=== PATIENT | female | born 1965 | race Caucasian/White ===

== ENCOUNTER 2022-02-23 09:26 | Outpatient (CLI) | payer BC, SELFPAY ==
[2022-02-23 12:42] LABS: Chloride* 99 mmol/L (96-114); Potassium* 5.3 mmol/L (3.6-5.1); Sodium* 135 mmol/L (135-149)
[2022-02-23 12:45] LABS: Blood Urea Nitrogen* 14 mg/dL (7-30); Calcium* 9.7 mg/dL (8.4-10.6); Carbon Dioxide* 28 mmol/L (20-32); Creatinine* 0.7 mg/dL (0.5-1.5); Estimated Glomerular Filt Rate 100 ml/min; Glucose* 100 mg/dL (60-115)
== END 2022-02-23 09:27 | disposition home or self-care (01) ==
PROVIDERS: PCP Physician Assistant Medical; Visit Provider Physician Assistant Medical
DX: R07.9 Chest pain, unspecified (principal)
CPT/HCPCS: 80048; 82553

== ENCOUNTER 2022-02-23 12:24 | Emergency (ER) | payer BC, OTHER, SELFPAY ==
[2022-02-23 12:49] VITALS: BP 143/78; PULSE 118; RESP 18; TEMP 37.1; O2SAT 100; BMI 22.8
--- NOTE | 2022-02-23 13:41 | ED_ITS ---
HPI - General Adult General Chief complaint: Chest Pain Stated complaint: Chest pain,shortness of breath Time Seen by Provider: 02/23/22 12:39 Source: patient Mode of arrival: ambulatory Limitations: no limitations History of Present Illness HPI narrative: 56-year-old female coming in today complaining of chest pressure that started earlier this morning. Nothing seems to make it better. Taking deep breaths makes it worse. She states that she is not short of breath but sometimes she feels like she can not take a deep enough breath. She states that she had an episode that lasted about 10 minutes were her right arm felt tingly as well but this has resolved. She denies headache, changes in her vision or hearing. No nausea or vomiting. She denies any dizziness or vertiginous symptoms. She does state that she recently drove from [employer], about a week ago. She has no history of blood clots. She denies fevers or chills. She denies any trauma to the chest wall. She was seen in the clinic earlier today where an EKG was done which was unremarkable, normal troponin and D-dimer was also normal. However she states that when she ambulated in the clinic her oxygen saturation dropped into the upper 80s. Patient denies any past medical history consistent with tachycardia. Patient does have a history of hypertension. Denies personal or family history of blood clots. States that she does have a brain aneurysm that is followed closely. 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 Related Data Home Medications Medication Instructions Recorded Confirmed estradiol 0.01% (0.1 mg/gram) 1 appful vaginal QDAY 02/23/22 02/23/22 vaginal cream (Estrace) fluorouracil 0.5 % topical cream 1 applic topical QWEEK 02/23/22 02/23/22 fluorouracil 4 % topical cream 1 applic topical QDAY 02/23/22 02/23/22 lisinopril 10 mg tablet 10 mg PO QDAY 02/23/22 02/23/22 mupirocin 2 % topical ointment 1 applic topical TID 02/23/22 02/23/22 niacinamide 500 mg tablet 500 mg PO BID 02/23/22 02/23/22 nortriptyline 25 mg capsule 25 mg PO .HS 02/23/22 02/23/22 tacrolimus 0.1 % topical ointment 1 applic topical BID 02/23/22 02/23/22 triamcinolone acetonide 0.1 % 1 applic topical BID 02/23/22 02/23/22 topical cream Allergies Allergy/AdvReac Type Severity Reaction Status Date / Time No Known Drug Allergies Allergy Verified 02/23/22 08:50 Review of Systems Status of ROS: Reports: 10 or more systems reviewed and unremarkable except as noted in History and below [facility] Medical History Chest pain Social History Smoking Status: Former smoker Do you use any of these nicotine containing products: None Second hand tobacco smoke exposure: Yes How often do you have a drink containing alcohol: monthly or less How many standard drinks containing alcohol do you have on a typical day: 1 or 2 How often do you have six or more drinks on one occasion: Never AUDIT-C Alcohol total score: 1 Non-prescribed substance use: denies use Exam Narrative: Exam Narrative: Well-nourished well-developed patient in no acute distress. Alert and oriented. Answers questions appropriately. Mood and affect are appropriate. Thoughts are goal oriented and rational. No tangential or magical thinking noted. Patient speaks in full sentences without needing to catch their breath. HEENT: Normocephalic atraumatic. Right pupil is quite a bit larger than the left, patient is blind in the right eye.. Extraocular muscles are intact. Conjunctivae are moist without any icterus noted. Moist mucous membranes. Posterior pharynx is normal. Neck is soft without any lymphadenopathy or thyromegaly. No masses are appreciated. Cardiovascular: Heart is regular rate and rhythm S1 and S2 are present without any murmurs. I cannot reproduce her chest pain on palpation of the chest wall. Lungs: Clear to auscultation bilaterally no wheezes rhonchi or rales are appreciated. Patient takes deep breaths without any discomfort. Abdomen: Soft and nontender nondistended with normal bowel sounds. No guarding or rebound. No masses or organomegaly appreciated. Extremities: Bilateral lower extremities are without edema. Normal DP and PT pulses. Skin: Well perfused without any obvious rashes. Strength is 5/5 of the upper and lower extremities. Reflexes are 2+ and symmetric at the knees. Cranial nerves 3-12 are normal. There is no nystagmus either horizontally or vertically. Gait is normal. Const: Vital Signs, click to edit/add: Vital Signs - 24 hr 02/23/22 12:49 02/23/22 14:38 Temperature 98.7 F Pulse Rate [Right Pulse Oximeter] 118 H 84 Respiratory Rate 18 10 L Blood Pressure [Le ft Upper Arm] 143/78 H 152/85 H Pulse Oximetry 100 99 Oxygen Delivery Me thod Room Air Room Air Course Course Hospital Course: IV was started and labs were redrawn. D-dimer was slightly elevated. EKG shows sinus tachycardia with a pulse of 110. Troponin x2 were negative. Chest x-ray was done in the clinic earlier and was reviewed was normal. Because of the elevated D-dimer we did go ahead and proceed with a chest CT, PE protocol, which was entirely normal. We did ambulate her while she was here and her oxygen saturation did drop to about 89 with ambulation but quickly came back up to 99 with rest. During that time patient does not become short of breath. Her chest discomfort remained substernal and unchanged. COVID testing was negative. Vital Signs Vital signs: Initial Vital Signs Temperature 98.7 F 02/23/22 12:49 Temperature Source Temporal Artery Scan 02/23/22 12:49 Pulse Rate 118 H 02/23/22 12:49 Respiratory Rate 18 02/23/22 12:49 Blood Pressure 143/78 H 02/23/22 12:49 Blood Pressure Mean 99 02/23/22 12:49 Blood Pressure Position Sitting 02/23/22 12:49 Pulse Oximetry 100 02/23/22 12:49 Oxygen Delivery Method 02/23/22 12:49 Vital Signs Temperature 98.7 F 02/23/22 12:49 Pulse Rate 118 H 02/23/22 12:49 Respiratory Rate 18 02/23/22 12:49 Blood Pressure 143/78 H 02/23/22 12:49 Pulse Oximetry 100 02/23/22 12:49 Oxygen Delivery Method 02/23/22 12:49 Temperature 98.7 F 02/23/22 12:49 Pulse Rate 84 02/23/22 14:38 Respiratory Rate 10 L 02/23/22 14:38 Blood Pressure 152/85 H 02/23/22 14:38 Pulse Oximetry 99 02/23/22 14:38 Oxygen Delivery Method 02/23/22 14:38 Medical Decision Making MDM Narrative Medical decision making narrative: 56-year-old female with chest pain and hypoxia with exertion, etiology unclear at this time. We discussed further testing at this time and even admission however the patient states that she really needs to go home and she stated that she felt safe doing so. We did discuss doing an outpatient echocardiogram which she is agreeable to. We discussed returning to the ER if her symptoms worsen. She is currently describing her chest pain as a discomfort that does not stop her from doing her daily activities. Given her serial negative troponins, including the 1st troponin done this morning at the clinic, no EKG changes, and normal CT scan, I do feel that she is safe to go home at this time. Differential Diagnosis Differential Diagnosis: Acute coronary syndrome, pericardial effusion, pericarditis, pleurisy Medical Records Medical records reviewed: Yes I reviewed the patient's medical records Lab Data Lab results reviewed: Yes I reviewed the patient's lab results Labs: Lab Results 02/23/22 02/23/22 02/23/22 Range/Units 13:15 13:15 13:15 ESR 11 (2-20) mm/hr D-Dimer Quant (PE/DVT) 0.62 H (0.00-0.50) ug/ml Sodium 135 (135-149) mmol/L Potassium 4.2 (3.6-5.1) mmol/L Chloride 100 (96-114) mmol/L Carbon Dioxide 28 (20-32) mmol/L BUN 13 (7-30) mg/dL Creatinine 0.6 (0.5-1.5) mg/dL Estimated Creat Clear 110.52 Estimated GFR 104 ml/min Glucose 169 H (60-115) mg/dL Calcium 9.4 (8.4-10.6) mg/dL Total Bilirubin 0.2 (0.1-1.5) mg/dL Direct Bilirubin 0.1 (0.0-0.5) mg/dL AST 42 H (12-35) U/L ALT 28 (4-35) U/L Alkaline Phosphatase 59 (40-150) U/L Troponin I < 0.01 L (0.01-0.04) ng/mL C-Reactive Protein < 0.5 L (0.5-1.0) mg/dL Total Protein 7.8 (6.0-8.3) g/dL Albumin 4.6 (3.3-5.0) g/dL Lipase 64 (23-300) U/L SARS-CoV-2 (PCR) (Negative) Influenza Type A (PCR) (Negative) Influenza Type B (PCR) (Negative) 02/23/22 02/23/22 Range/Units 15:12 16:31 ESR (2-20) mm/hr D-Dimer Quant (PE/DVT) (0.00-0.50) ug/ml Sodium (135-149) mmol/L Potassium (3.6-5.1) mmol/L Chloride (96-114) mmol/L Carbon Dioxide (20-32) mmol/L BUN (7-30) mg/dL Creatinine (0.5-1.5) mg/dL Estimated Creat Clear Estimated GFR ml/min Glucose (60-115) mg/dL Calcium (8.4-10.6) mg/dL Total Bilirubin (0.1-1.5) mg/dL Direct Bilirubin (0.0-0.5) mg/dL AST (12-35) U/L ALT (4-35) U/L Alkaline Phosphatase (40-150) U/L Troponin I < 0.01 L (0.01-0.04) ng/mL C-Reactive Protein (0.5-1.0) mg/dL Total Protein (6.0-8.3) g/dL Albumin (3.3-5.0) g/dL Lipase (23-300) U/L SARS-CoV-2 (PCR) Negative SARS-CoV-2 (Negative) Influenza Type A (PCR) Negative PCR FLU A (Negative) Influenza Type B (PCR) Negative PCR FLU B (Negative) Imaging Data CT scan - chest: Attestation: I have reviewed the pertinent imaging results. Radiologist's impression: FINDINGS: Pulmonary arteries: The quality of enhancement of the pulmonary arteries is adequate. No filling defects to suggest pulmonary emboli. No findings of pulmonary artery hypertension. Thyroid: Unremarkable. Thoracic lymph nodes: No enlarged supraclavicular, mediastinal, hilar, or axillary lymph nodes. Mediastinum and esophagus: Unremarkable. Heart and vasculature: Unremarkable. Lungs: Unremarkable. Pleura: Unremarkable. Chest wall: Unremarkable. Upper abdomen: No acute or significant findings. Bones: Unremarkable for age. IMPRESSION: 1. No pulmonary embolism. 2. Clear lungs. Discharge Plan Discharge Clinical Impression: Chest pain Patient Disposition: Home, Self-Care Condition: Stable Additional Instructions: Recommend you follow-up with an echocardiogram early next week. Return to the ER if you are experiencing shortness of breath or worsening chest pain. We will call you with your COVID results today. Prescriptions: No Action nortriptyline 25 mg capsule 25 mg PO .HS lisinopril 10 mg tablet 10 mg PO QDAY estradiol [Estrace] 0.01 % (0.1 mg/gram) cream 1 appful vaginal QDAY Rx Instructions: for 14 days fluorouracil 0.5 % cream 1 applic topical QWEEK tacrolimus 0.1 % ointment 1 applic topical BID triamcinolone acetonide 0.1 % cream 1 applic topical BID fluorouracil 4 % cream 1 applic topical QDAY mupirocin 2 % ointment 1 applic topical TID niacinamide 500 mg tablet 500 mg PO BID Follow Up/Referrals: Olivia Matt PA-C [Primary Care Provider] - Stand Alone Forms: [employer] Info Instructions
[2022-02-23 13:47] LABS: Chloride* 100 mmol/L (96-114)
[2022-02-23 13:48] LABS: Albumin* 4.6 g/dL (3.3-5.0); Potassium* 4.2 mmol/L (3.6-5.1); Sodium* 135 mmol/L (135-149)
[2022-02-23 13:50] LABS: Creatinine* 0.6 mg/dL (0.5-1.5); Est. Creatinine Clearance* 110.52; Estimated Glomerular Filt Rate 104 ml/min
[2022-02-23 13:51] LABS: Alanine Aminotransferase* 28 U/L (4-35); Alkaline Phosphatase* 59 U/L (40-150); Aspartate Amino Transferase* 42 U/L (12-35); Bilirubin Direct* 0.1 mg/dL (0.0-0.5); Bilirubin Total* 0.2 mg/dL (0.1-1.5); Blood Urea Nitrogen* 13 mg/dL (7-30); Calcium* 9.4 mg/dL (8.4-10.6); Carbon Dioxide* 28 mmol/L (20-32); Glucose* 169 mg/dL (60-115); Lipase* 64 U/L (23-300); Total Protein* 7.8 g/dL (6.0-8.3)
[2022-02-23 13:55] LABS: C Reactive Protein* < 0.5 mg/dL (0.5-1.0)
[2022-02-23 13:58] LABS: D Dimer Quantitative* 0.62 ug/ml (0.00-0.50)
[2022-02-23 14:04] LABS: Troponin I* < 0.01 ng/mL (0.01-0.04)
[2022-02-23 14:13] LABS: Erythrocyte SedimentationRate* 11 mm/hr (2-20)
--- NOTE | 2022-02-23 14:27 | CRLHL7_ITS ---
For Patients: As a result of the Century Cures Act, medical imaging exams and procedure reports are released immediately into your electronic medical record. You may view this report before your referring provider. If you have questions, please contact your health care provider. INDICATION: Chest pain, elevated D-dimer. TECHNIQUE: CT chest PE was acquired with 95 mL Isovue 370 IV contrast. Coronal and sagittal reformats were generated. COMPARISON: None. FINDINGS: Pulmonary arteries: The quality of enhancement of the pulmonary arteries is adequate. No filling defects to suggest pulmonary emboli. No findings of pulmonary artery hypertension. Thyroid: Unremarkable. Thoracic lymph nodes: No enlarged supraclavicular, mediastinal, hilar, or axillary lymph nodes. Mediastinum and esophagus: Unremarkable. Heart and vasculature: Unremarkable. Lungs: Unremarkable. Pleura: Unremarkable. Chest wall: Unremarkable. Upper abdomen: No acute or significant findings. Bones: Unremarkable for age. IMPRESSION: 1. No pulmonary embolism. 2. Clear lungs. Please note that all CT scans at this facility use dose modulation, iterative reconstruction, and/or weight-based dosing when appropriate to reduce radiation dose to as low as reasonably achievable. Dictated by Jude Matt MD @ 02/23/2022 3:47:12 PM (Electronically Signed)
--- NOTE | 2022-02-23 14:36 | ED.NURSE ---
Patient ambulated around ED with pulse oximeter. Reading at rest was 98%, after lap around ED sats registered at 88%. Patient looked at ease with ambulation. Denied increase in SOB or chest tightness but states it remains the same. MD updated.
[2022-02-23 14:38] VITALS: BP 152/85; PULSE 84; RESP 10; O2SAT 99
[2022-02-23 16:02] LABS: Troponin I* < 0.01 ng/mL (0.01-0.04)
[2022-02-23 17:36] LABS: PCR FLU A Negative PCR FLU A (Negative); PCR FLU B Negative PCR FLU B (Negative)
[2022-02-23 17:48] LABS: SARS PCR* Negative SARS-CoV-2 (Negative)
--- NOTE | 2022-02-23 18:07 | ED.NURSE ---
Negative Covid and Influenza result provided to patient. Patient was connected with radiology department to schedule upcoming Echo.
== END 2022-02-23 17:20 | disposition home or self-care (01) ==
PROVIDERS: Emergency Provider Family Medicine; PCP Physician Assistant Medical
DX: R07.9 Chest pain, unspecified (principal); R06.02 Shortness of breath
CPT/HCPCS: 36415; 71260; 80048; 80076; 83690; 84484; 85379; 85651; 86140; 87502; 87635; 93005; 99284; 99285; Q9967